=== PATIENT | female | born 1970 | race Caucasian/White ===

== ENCOUNTER 2020-03-24 14:43 | Emergency (ER) | payer OTHER, SELFPAY ==
--- NOTE | 2020-03-24 14:45 | DI.RAD_ITS ---
EXAM: XR HAND LT COMPLETE CLINICAL HISTORY: pain, swelling. TECHNIQUE: 2D digital imaging was performed. COMPARISON: No exams were available for comparison FINDINGS: BONES: No acute fracture is present. No bony destructive lesion is seen. JOINTS: No dislocation present. There is mild flexion at the distal interphalangeal joint of the midd le finger. There are minimal degenerative changes. SOFT TISSUE: Normal. IMPRESSION: Slight flexion at the distal interphalangeal joint of the middle finger. No fracture. DATA REPOSITORY: RADIATION DOSE DELIVERED:
[2020-03-24 14:48] VITALS: BP 153/82; PULSE 90; RESP 16; TEMP 36.5; O2SAT 99
--- NOTE | 2020-03-24 15:05 | ED.GENADUL_ITS ---
Discharge Plan Disposition Patient Disposition: HOME Condition: Stable Discharge Details Chief Complaint: Orthopedic Clinical Impression: Rupture of extensor tendon of finger Primary Care Provider: None,None ED Provider: Cristian Gomes Home Meds and New Rx's Prescriptions: No Action No Known Home Meds RF: 0 Discharge Instructions Additional Instructions: Please follow-up in orthopedic clinic in approximately 7 to 10 days for recheck. Call the office at [phone] for an appointment time. May apply ice to reduce pain and swelling. You may develop some bruising. Keep the finger in extension with the splint at all times as instructed. Tylenol and ibuprofen as needed for pain. Return to the ER for any acute concerns. Medical Decision Making 50-year-old female who was scrubbing up with her nondominant hand when she felt a pull in clinic in her left long finger distal phalanx. She now presents with deformity and inability to extend at the IP of the long finger. Her exam is otherwise unremarkable. X-ray without evidence of fracture. She is placed in extensor splint and given a replacement. Who she understands to keep it in extension. She understands homecare and return precautions HPI General Mode of arrival: ambulatory . Date/Time Provider Initiated Documentation: 03/24/20 14:44 . Limitations to Documentation: no limitations . Information obtained by: patient . History of Present Illness 50 year old F presents to the emergency department with the chief complaint of Left middle finger injury, Quality is described as constant, and is localized to the left and upper extremity. Patient started experiencing this hour(s) and it has been constant. Patient notes no other symptoms.. Related Data Home Medications Medication Instructions Recorded Confirmed Unknown [No Known Home Meds] 03/24/20 03/24/20 Allergies Allergy/AdvReac Type Severity Reaction Status Date / Time No Known Allergies Allergy Unverified 03/24/20 14:53 General Stated Complaint: Orthopedic FEDE: 4 Review of Systems Narrative: 4 systems reviewed and otherwise neg. PFSH Social History Smoking/Tobacco Use Status: Never Smoking risk assessment performed?: Yes Alcohol Intake: never Substance use type: does not use Do you feel safe at home: Yes Do you feel safe in your relationship?: Yes Exam Narrative Exam Narrative: GEN: awake, alert, oriented 3. Pleasant, well groomed, interactive. HEAD: Normocephalic, atraumatic ENT: Mucous membranes moist, oropharynx unremarkable, External ear exam unremarkable EYES: PERRL, EOMI NECK: Full ROM, no MIKE, no menigismus EXT: Left long finger with disruption of the extensor function at the distal IP joint. Flexor function normal. All other cardinal movements normal. Trace left finger edema, normal sensation Neuro: Grossly normal neurologic exam, conversant, interactive. Psych: Speech fluent, thoughts congruent, affect normal Course Vital Signs Vital signs: Vital Signs Temperature 36.5 C 03/24/20 14:48 Pulse 90 03/24/20 14:48 Respiratory Rate 16 03/24/20 14:48 Blood Pressure 153/82 H 03/24/20 14:48 Pulse Oximetry 99 03/24/20 14:48 Temperature 36.5 C 03/24/20 14:48 Temperature Source Skin 03/24/20 14:48 Pulse 90 03/24/20 14:48 Respiratory Rate 16 03/24/20 14:48 Respiratory Effort 03/24/20 14:51 Blood Pressure 153/82 H 03/24/20 14:48 Blood Pressure Position Sitting 03/24/20 14:48 Pulse Oximetry 99 03/24/20 14:48 Oxygen Delivery Method Room Air 03/24/20 14:48 Oxygen Flow Rate 0 03/24/20 14:48 Pain Level 6 03/24/20 15:02
== END 2020-03-24 15:25 | disposition home or self-care (01) ==
PROVIDERS: Emergency Provider Emergency Medicine
DX: S66.313A Strain of extensor muscle, fascia and tendon of left middle finger at wrist and hand level, initial encounter (principal); X50.9XXA Other and unspecified overexertion or strenuous movements or postures, initial encounter
CPT/HCPCS: 29130; 99283; 73130

== ENCOUNTER 2023-07-30 07:47 | Emergency (ER) | payer OTHER, SELFPAY ==
[2023-07-30 07:56] VITALS: BP 174/95; PULSE 113; RESP 16; TEMP 36.6; O2SAT 100
--- NOTE | 2023-07-30 08:15 | DI.RAD_ITS ---
Exam(s) XR CERVICAL SP MENDOZA TRAUMA 2-3V EXAM: XR CERVICAL SP MENDOZA TRAUMA 2-3V CLINICAL HISTORY: pain. TECHNIQUE: 2D digital imaging was performed. Two images were obtained. AP and lateral images were obtained. COMPARISON: No exams were available for comparison FINDINGS: This is a limited examination with AP and lateral views only obtained. There is narrowing of the C5- C6 disc space. Small endplate osteophytes are seen from C4-5 through C6-C7. There is straightening o f the normal cervical lordosis. The odontoid is not well imaged on this examination. No acute fract ure or subluxation is present. The cervical thoracic junction is well maintained. The prevertebral soft tissues are unremarkable. Lung apices are clear. IMPRESSION: 1. Mild cervical spondylosis. 2. No acute fracture or subluxation in the cervical spine. DATA REPOSITORY: RADIATION DOSE DELIVERED:
--- NOTE | 2023-07-30 08:15 | DI.RAD_ITS ---
Exam(s) XR SHOULDER LT COMPLETE 2+V EXAM: XR SHOULDER LT COMPLETE 2+V CLINICAL HISTORY: pain. TECHNIQUE: 2D digital imaging was performed of the left shoulder. Four images were obtained. AP, G rashey and Y views were obtained. COMPARISON: No exams were available for comparison FINDINGS: BONES: No acute fracture is present. No bony destructive lesion is seen. JOINTS: No dislocation present. There are degenerative changes seen at the acromioclavicular joint. The glenohumeral joint is well maintained. SOFT TISSUE: The visualized lungs are clear. IMPRESSION: No acute fracture or dislocation. DATA REPOSITORY: RADIATION DOSE DELIVERED:
--- NOTE | 2023-07-30 08:34 | W.ED.GENAD ---
Discharge Plan Disposition Patient Disposition: Home Discharge Details Clinical Impression: Cervical radiculopathy Primary Care Provider: Unknown,Unknown ED Provider: Bob Arenas Home Meds and New Rx's Prescriptions: New prednisone 20 mg tablet 40 mg PO DAILY Qty: 8 0RF gabapentin 300 mg capsule 300 mg PO DAILY 10 Days Qty: 10 0RF Discharge Instructions Instructions: Cervical Radiculopathy (ED) Additional Instructions: Please take your arm out of the sling multiple times per day and perform gentle range of motion of your upper extremity. Please utilize light duty at work for the next week and follow-up with [facility] for establishment of insurance and primary care as they can assist. Return to the emergency department for any new or significant worsening of condition Stand Alone Forms: Physical Therapy Referral, Work Release Referrals: Primary Care Provider [Outside] HPI General Mode of arrival: ambulatory. Date/Time Provider Initiated Documentation: 07/30/23 08:03. Limitations to Documentation: no limitations. Information obtained by: patient and RN notes reviewed. History of Present Illness 53 year old F presents to the emergency department with the chief complaint of left shoulder pain, described as moderate, Quality is described as sharp, and is localized to the left and upper extremity. Patient extremity. Patient started experiencing this day(s) (6) and it has been constant. Immobilization improves symptom(s), and Rest improves symptom(s), Movement worsens symptoms . Patient notes no other symptoms.. Patient did receive the following treatments prior to arrival, NSAID Related Data Home Medications Medication Instructions Recorded Confirmed gabapentin 300 mg capsule 300 mg PO DAILY 10 days #10 caps 07/30/23 prednisone 20 mg tablet 40 mg (2 x 20 mg) PO DAILY #8 tabs 07/30/23 Previous Rx's Medication Instructions Recorded gabapentin 300 mg capsule 300 mg PO DAILY 10 days #10 caps 07/30/23 prednisone 20 mg tablet 40 mg (2 x 20 mg) PO DAILY #8 tabs 07/30/23 Allergies Allergy/AdvReac Type Severity Reaction Status Date / Time No Known Allergies Allergy Unverified 07/30/23 08:02 General Stated Complaint: Orthopedic FEDE: 3 Review of Systems Constitutional Constitutional: Denies chills and Denies fever(s) Cardiovascular Cardiovascular: Denies chest pain and Denies dyspnea Respiratory Respiratory: Denies dyspnea Gastrointestinal Gastrointestinal: Denies abdominal pain Musculoskeletal Musculoskeletal: Reports as per HPI, Denies numbness, Reports radiating pain into limb and Denies tingling Integumentary/Breasts Skin/Breast: Denies erythema and Denies rash Neurologic Neurologic: Denies numbness, Denies sensory deficit and Denies tingling Exam Const General: cooperative, no acute distress and not ill appearing Orientation: alert, awake and oriented x3 HENMT Mouth: moist mucous membranes Neck Neck: no meningeal signs, tender (left trapezius ) and no JVD Resp Effort & Inspection: normal respiratory effort, able to speak in complete sentences and no respiratory distress Auscultation: clear to auscultation bilaterally Cardio Rate: regular rate Rhythm: regular rhythm Heart Sounds: S1 normal and S2 normal Skin General skin exam: no rashes or lesions noted Neuro General: patient alert, patient awake, patient oriented x3, moves all extremities and no focal motor deficits Sensory Exam: no sensory deficits noted Extrem General: normal to inspection and capillary refill normal Left upper extremity: shoulder/upper arm Details: tenderness Location: of the scapula, axillary nerve sensory function normal and abnormal ROM Details: held in an abnormal fashion Details: in ADduction, in flexion and in internal rotation, pain with active ROM and pain with passive ROM; no swelling, no ecchymosis, no crepitus and no deformity Course Vital Signs Vital signs: Vital Signs Temperature 36.6 C 07/30/23 07:56 Pulse 113 H 07/30/23 07:56 Respiratory Rate 16 07/30/23 07:56 Blood Pressure 174/95 H 07/30/23 07:56 Pulse Oximetry 100 07/30/23 07:56 Temperature 36.6 C 07/30/23 07:56 Temperature Source Temporal Artery Scan 07/30/23 07:56 Pulse 113 H 07/30/23 07:56 Respiratory Rate 16 07/30/23 07:56 Respiratory Effort Normal, Non-Labored 07/30/23 08:03 Blood Pressure 174/95 H 07/30/23 07:56 Blood Pressure Position Sitting 07/30/23 07:56 Pulse Oximetry 100 07/30/23 07:56 Oxygen Delivery Method Room Air 07/30/23 07:56 Oxygen Flow Rate 0 07/30/23 07:56 Medical Decision Making Patient presenting to the emergency department for chief complaint of left shoulder and arm discomfort. 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 She states that she just naturally perform more light duty activities this week which did improve discomfort but then yesterday tried to resume normal activities which made symptoms worse. She has taken some Aleve intermittently which did not significantly help symptoms. Patient denies any chest pain shortness of breath or other complaints. Physical exam shows reproducible tenderness to palpation of C-spine and soft tissue tenderness of upper shoulder. Patient does have intact range of motion but is somewhat limited by pain. Exam is otherwise unremarkable. Will plan on performing radiological imaging due to workplace injury but she fortunately working differential diagnosis mainly to include soft tissue injury versus radiculopathy. Review of radiological imaging shows no acute fracture or dislocation but does show some disc degeneration of C5/C6 which is consistent with some radiculopathy type symptoms. Patient was given a sling for comfort, placed on steroids and gabapentin and otherwise recommended [id number] medications. Patient states that she does not have a primary care provider or insurance so was recommended to follow-up with [facility] and also given a PT note/referral to see if they can assist with her pain reduction. After discussion of diagnosis and plan of care patient has no further needs, questions, or concerns and states clear understanding to return to the emergency department for any worsening symptoms. This documentation was generated using [employer] dictation system, please disregard any oddities of phrase or misspellings. Imaging Data Radiologic Study: Imaging: X-Ray Radiologist's impression: Exam(s) PROCEDURE INFORMATION: Exam: XR Cervical Spine Exam date and time: 07/30/2023 8:30 AM Age: 53 years old Clinical indication: Injury or trauma; Other: Injured assisting patient; Sprain or strain, cervical ligaments; Injury date: 07/25/23 TECHNIQUE: Imaging protocol: Radiologic exam of the cervical spine. Views: 2 or 3 views. COMPARISON: No relevant prior studies available. FINDINGS: Bones/joints: No acute fracture of the cervical spine. No subluxation or dislocation of the cervical spine. Intervertebral disc space narrowing C5/C6 may represent degenerative disc disease.. Anterior osteophyte formation C4 through C6. Posterior osteophyte formation C5 through C7. Degenerative changes in the facets at multiple levels. Degenerative changes at C1/C2 Soft tissues: Unremarkable. IMPRESSION: 1. No acute fracture of the cervical spine. 2. No subluxation or dislocation of the cervical spine. 3. Intervertebral disc space narrowing C5/C6 may represent degenerative disc disease.. Dictated and Authenticated by: Lucero Bautista MD. Radiologic Study #2: Imaging: X-Ray Radiologist's impression: Exam(s) PROCEDURE INFORMATION: Exam: XR Left Shoulder Exam date and time: 07/30/2023 8:40 AM Age: 53 years old Clinical indication: Injury or trauma; Other: Injured while lifting patient; Sprain or strain; Shoulder; Left; Injury date: 07/24/22 TECHNIQUE: Imaging protocol: Radiologic exam of the left shoulder. Views: 2 or more views. COMPARISON: CR XR CERVICAL SP MENDOZA TRAUMA 2-3V 07/30/2023 8:30 AM FINDINGS: Bones/joints: There is no evidence of acute fracture.There is no evidence of malalignment or dislocation. Soft tissues: Normal. IMPRESSION: There is no evidence of acute fracture.There is no evidence of malalignment or dislocation. Dictated and Authenticated by: Lucero Bautista MD. Quality:SDOH Health Related Social Needs: No Data to Display PFSH All Active Problems (Updated 07/30/23 @ 10:11 by Bob Arenas NP) Cervical radiculopathy (Acute) Mallet deformity of left middle finger (Acute) Social History Smoking/Tobacco Use Status: Never Smoking risk assessment performed?: Yes Alcohol Intake: never Substance use type: does not use Do you feel safe at home: Yes Do you feel safe in your relationship?: Yes
[2023-07-30] MEDS: Ketorolac 15 MG/ML VIAL IM (09:06)
[2023-07-30] MEDS: Lidocaine 5% Patch 1 PATCH TP (09:06)
--- NOTE | 2023-07-30 09:58 | DI.VRAD_ITS ---
PROCEDURE INFORMATION: Exam: XR Cervical Spine Exam date and time: 07/30/2023 8:30 AM Age: 53 years old Clinical indication: Injury or trauma; Other: Injured assisting patient; Sprain or strain, cervical ligaments; Injury date: 07/25/23 TECHNIQUE: Imaging protocol: Radiologic exam of the cervical spine. Views: 2 or 3 views. COMPARISON: No relevant prior studies available. FINDINGS: Bones/joints: No acute fracture of the cervical spine. No subluxation or dislocation of the cervical spine. Intervertebral disc space narrowing C5/C6 may represent degenerative disc disease.. Anterior osteophyte formation C4 through C6. Posterior osteophyte formation C5 through C7. Degenerative changes in the facets at multiple levels. Degenerative changes at C1/C2 Soft tissues: Unremarkable. IMPRESSION: 1. No acute fracture of the cervical spine. 2. No subluxation or dislocation of the cervical spine. 3. Intervertebral disc space narrowing C5/C6 may represent degenerative disc disease.. Dictated and Authenticated by: Lucero Bautista MD. Ordering:PROSPER Rojas MD
--- NOTE | 2023-07-30 09:58 | DI.VRAD_ITS ---
PROCEDURE INFORMATION: Exam: XR Left Shoulder Exam date and time: 07/30/2023 8:40 AM Age: 53 years old Clinical indication: Injury or trauma; Other: Injured while lifting patient; Sprain or strain; Shoulder; Left; Injury date: 07/24/22 TECHNIQUE: Imaging protocol: Radiologic exam of the left shoulder. Views: 2 or more views. COMPARISON: CR XR CERVICAL SP MENDOZA TRAUMA 2-3V 07/30/2023 8:30 AM FINDINGS: Bones/joints: There is no evidence of acute fracture.There is no evidence of malalignment or dislocation. Soft tissues: Normal. IMPRESSION: There is no evidence of acute fracture.There is no evidence of malalignment or dislocation. Dictated and Authenticated by: Lucero Bautista MD. Ordering:PROSPER Rojas MD
--- NOTE | 2023-07-30 10:15 | NUR.NOTE ---
Referral given to Care Management to help Patient get in touch with [facility].. Pt needs a primary care provider and insurance for a follow up to Cervical Radiculopathy.
== END 2023-07-30 10:31 | disposition home or self-care (01) ==
PROVIDERS: Emergency Provider Nurse Practitioner Family
DX: M25.512 Pain in left shoulder (principal); M54.12 Radiculopathy, cervical region
CPT/HCPCS: 96372; 99283; 72040; 73030; J1885

== ENCOUNTER → 2023-08-26 00:15 | Outpatient (CLI) | payer OTHER, SELFPAY ==
--- NOTE | 2023-08-26 07:00 | DI.MRI_ITS ---
Exam(s) MR CERVICAL SPINE WO EXAM: MR CERVICAL SPINE WO CLINICAL HISTORY: persistent pain,CERVICAL RADICULOPATHY,M54.12 TECHNIQUE: Multiplanar multisequence MRI of the cervical spine was performed without intravenous con trast. COMPARISON: No exams were available for comparison FINDINGS: BONES: Vertebral body heights are maintained. Intervertebral disc spaces are normal. Alignment is nor mal. Bone marrow signal intensity is within normal limits. CERVICAL CORD: Craniovertebral junction is unremarkable. The cervical cord is normal size and signal intensity. No evidence of tonsillar ectopia or Chiari malformation. SOFT TISSUES: Unremarkable. C2-3: No disc herniation or bulge is identified. No significant central spinal canal or neural forami nal stenosis. C3-4: No disc herniation or bulge is identified. No significant central spinal canal or neural forami nal stenosis C4-5: No disc herniation or bulge is identified. No significant central spinal canal or right neural foraminal stenosis. There is mild left neural foraminal stenosis. C5-6: There is mild prominence of the osteophyte disc complex eccentric to the left. There is no sig nificant central spinal canal stenosis. There is [id number] left neural foraminal stenosis. N o significant right neural foraminal stenosis is present. C6-7: No disc herniation or bulge is identified. No significant central spinal canal or neural forami nal stenosis C7-T1: No disc herniation or bulge is identified. No significant central spinal canal or neural bhavesh inal stenosis IMPRESSION: Degenerative changes at C4-5 and C5-C6 resulting in mild left neural foraminal stenosis at C4-5 and m [id number] left neural foraminal stenosis at C5-C6. DATA REPOSITORY:
== END ==
PROVIDERS: Visit Provider Nurse Practitioner Family
DX: M54.12 Radiculopathy, cervical region (principal)
CPT/HCPCS: 72141